=== PATIENT | male | born 1965 | race Asian ===

== ENCOUNTER → 2018-11-13 | Outpatient (CLI) | payer OTHER ==
[2018-11-14 12:04] LABS: RUBEOLA (MEASLES) IGG >300.0 AU/mL (Immune >29.9)
== END | disposition home or self-care (01) ==
LOC: EMPHLTH 09:18
PROVIDERS: ATTEND Internal Medicine
DX: Z02.1 Encounter for pre-employment examination (principal)
CPT/HCPCS: 86706; 86735; 86762; 86765; 86787

== ENCOUNTER → 2018-11-16 | Outpatient (CLI) | payer OTHER | END | disposition home or self-care (01) | LOC: EMPHLTH 11:54 | PROVIDERS: ATTEND Internal Medicine | DX: R76.11 Nonspecific reaction to tuberculin skin test without active tuberculosis (principal) ==